=== PATIENT | male | born 1990 | race Caucasian/White ===

== ENCOUNTER 2018-03-20 18:45 | Emergency (ER) | payer MEDICAID ==
[~2018-03-20] VITALS: Ht 172.7 cm; Wt 68.0 kg
[2018-03-20 19:26] VITALS: Ht 172.7 cm; Wt 68.0 kg
[2018-03-20 20:14] LABS: BASOPHIL % 0.5 % (0-2); PLATELET COUNT 267 x10^3mcL (130-400)
[2018-03-20 20:31] LABS: RED CELL DISTRIBUTION WIDTH 15.8 % (11.5-14.5)
[2018-03-20 21:16] VITALS: BP 122/79
== END 2018-03-20 21:16 | disposition home or self-care (01) ==
LOC: ED 18:45
PROVIDERS: Emergency Medicine
DX: K29.70 Gastritis, unspecified, without bleeding (principal); K21.9 Gastro-esophageal reflux disease without esophagitis; J45.909 Unspecified asthma, uncomplicated
CPT/HCPCS: 36415; Q0092